=== PATIENT | female | born 1955 | race Caucasian/White ===

== ENCOUNTER 2020-01-16 21:40 | Inpatient (IN) | payer MEDICARE ==
[~2020-01-16] VITALS: Ht 152.4 cm; Wt 68.0 kg
[2020-01-16] MEDS ORDERED: [UNRECOGNIZED DRUG - REMARK] (22:01)
[2020-01-16] MEDS ORDERED: LORA1TAB PO (22:01)
[2020-01-16] MEDS ORDERED: SITA100T PO (22:01)
[2020-01-16] MEDS ORDERED: [UNRECOGNIZED DRUG - REMARK] (22:01)
[2020-01-16] MEDS ORDERED: FURO-152 PO (22:01)
[2020-01-16] MEDS ORDERED: VENL150C2 PO (22:01)
[2020-01-16] MEDS ORDERED: TOPI200T PO (22:01)
[2020-01-16] MEDS ORDERED: HYDR-4354 PO (22:01)
[2020-01-16] MEDS ORDERED: FESO8TAB PO (22:01)
[2020-01-16] MEDS ORDERED: ZIPR80CA2 PO (22:01)
[2020-01-16] MEDS ORDERED: GABA300C PO (22:01)
[2020-01-16] MEDS ORDERED: ZOLP10TA2 PO (22:01)
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
[2020-01-16] MEDS ORDERED: LISI-603 PO (22:12)
--- NOTE | 2020-01-16 22:29 | NUR ---
FARZANA DALEN AT THE BEDSIDE SINCE PT'S ARRIVAL. NAVIGATING OFFICER AWARE AND APPROVED
[2020-01-16 22:34] LABS: BASOPHILS # (AUTO) 0.1 K/uL (0.0-8.0); BASOPHILS % (AUTO) 1.1 % (0.0-2.0); EOSINOPHILS # (AUTO) 0.2 K/uL (0.0-0.7); EOSINOPHILS % (AUTO) 2.6 % (0.0-7.0); HEMATOCRIT 36.1 % (31.2-41.9); HEMOGLOBIN 12.1 g/dL (10.9-14.3); LYMPHOCYTES # (AUTO) 2.6 K/uL (20.0-40.0); LYMPHOCYTES % (AUTO) 28.6 % (20.5-51.5); MEAN CORPUSCULAR HEMOGLOBIN 33.7 uug (24.7-32.8); MEAN CORPUSCULAR HGB CONC 34 g/dL (32.3-35.6); MEAN CORPUSCULAR VOLUME 100.4 fL (75.5-95.3); MONOCYTES # (AUTO) 0.7 K/uL (2.0-10.0); MONOCYTES % (AUTO) 8.1 % (0.0-11.0); NEUTROPHILS # (AUTO) 5.4 K/uL (1.8-8.9); NEUTROPHILS % (AUTO) 59.6 % (38.5-71.5); PLATELET COUNT (AUTO) 250 K/uL (179-408); WHITE BLOOD COUNT (AUTO) 9.1 K/uL (3.8-11.8)
--- NOTE | 2020-01-16 22:38 | NUR ---
Dr. Archibald at bedside for MSE.
[2020-01-16 22:49] LABS: CARBON DIOXIDE 27 mmol/L (21-32); CHLORIDE 106 mmol/L (98-107); CREATININE 1.2 mg/dL (0.6-1.3); GLUCOSE 155 mg/dL (74-106); UREA NITROGEN, BLOOD 37 mg/dL (7-18)
[2020-01-16 22:50] LABS: ETHANOL < 3 MG/DL (0-0)
[2020-01-16 22:55] LABS: ACETAMINOPHEN 5.6 ug/mL (10-30); ALANINE AMINOTRANSFERASE 17 U/L (14-59); ALKALINE PHOSPHATASE 85 U/L (50-136); ASPARTATE AMINOTRANSFERASE 12 U/L (15-37); BILIRUBIN,DIRECT 0.1 mg/dL (0.0-0.2); BILIRUBIN,TOTAL 0.2 mg/dL (0.2-1.0); CREATINE KINASE, TOTAL 46 U/L (26-192); TOTAL PROTEIN, SERUM 6.6 g/dL (6.4-8.2)
[2020-01-16 23:02] LABS: THYROID STIMULATING HORMONE 4.475 mIU/mL (0.358-3.740)
[2020-01-16 23:10] LABS: *BILIRUBIN,URIN NEGATIVE (NEGATIVE); *COLOR,URINE YELLOW (YELLOW); *KETONES,URINE NEGATIVE (NEGATIVE); *UROBILINOGEN,URINE 0.2 E.U./dl (NORMAL); LEUKOCYTE ESTERASE ,URINE TRACE (NEGATIVE); NITRITE, URINE NEGATIVE (NEGATIVE); PH,URINE 5.5 (5.0-8.0); UGLUCOSE NEGATIVE (NEGATIVE)
[2020-01-16 23:21] LABS: *AMPHETAMINE, URINE NEGATIVE (NEGATIVE); *BARBITURATE, URINE NEGATIVE (NEGATIVE); *CANNABINOID, URINE NEGATIVE (NEGATIVE); *COCCAINE, URINE NEGATIVE (NEGATIVE); *OPIATE, URINE POSITIVE (NEGATIVE); *PHENCYCLIDINE SCREEN,URINE NEGATIVE (NEGATIVE)
[2020-01-16 23:24] LABS: *BLOOD, URINE TRACE (NEGATIVE); *CLARITY,URINE HAZY (CLEAR)
[2020-01-16 23:29] LABS: BACTERIA,URINE FEW /HPF (NONE SEEN); RBC,URINE 0-3 /HPF (0-3); SQUAMOUS EPITHELIAL CELL,UR FEW /HPF (NONE SEEN)
[2020-01-16 23:30] LABS: MUCUS,URINE FEW /LPF (0-FEW)
--- NOTE | 2020-01-17 02:41 | NUR ---
Patient asleep in bed. No behavioral issues noted at this time. 1:1 sitter on site.
[2020-01-17] MEDS ORDERED: LORAZEPAM 2 MG/1 ML VIAL IM ONE (04:00)
--- NOTE | 2020-01-17 04:00 | NUR ---
Patient wke up, was teary and agitated, requesting ATivan. Dr. Archibald made aware.
[2020-01-17] MEDS ORDERED: LORAZEPAM 2 MG/1 ML VIAL ONE (04:07)
[2020-01-17] MEDS ORDERED: KETOROLAC TROMETHAMINE 60 MG INJ IM ONE ×2 (04:23→04:30)
--- NOTE | 2020-01-17 04:58 | NUR ---
Patient complained of back pain. Dr. Archibald made aware and ordered Toradol IM.
[2020-01-17 07:30] VITALS: BP 144/75
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
[2020-01-17] MEDS ORDERED: CLONAZEPAM 0.5 MG TABLET PO PRN (08:15)
[2020-01-17] MEDS ORDERED: ZOLPIDEM 5 MG TABLET PO PRN (08:15)
[2020-01-17] MEDS ORDERED: MAG HYDROX/AL HYDROX/SIMETH 30 ML LIQUID UDC PO PRN (08:15)
[2020-01-17] MEDS ORDERED: BLOOD SUGAR DIAGNOSTIC 1 EACH STRIP VI ONE (08:15)
[2020-01-17] MEDS ORDERED: MAGNESIUM HYDROXIDE 30 ML LIQUID UDC PO PRN (08:15)
[2020-01-17] MEDS: ACETAMINOPHEN 325 MG TABLET PO PRN (08:32)
--- NOTE | 2020-01-17 10:01 | NUR ---
Social Work Initial Discharge Note: Patient currently resides at [address] [place] [address] Vinnie RODR[place]UE[place], [place] [address]. This financial underwriter contacted patient's friend Ever ([phone]) to gather collateral but was unavailable. This financial underwriter left a voicemail. Per pt, she would want to return back home upon discharge. heater worker will work with the MD and the treatment team to plan accordingly.
--- NOTE | 2020-01-17 10:02 | NUR ---
Social Work Family Contact: This senior writer contacted patient's friend Ever ([phone]) to gather collateral but was unavailable. This senior writer left a voicemail.
--- NOTE | 2020-01-17 10:06 | NUR ---
Social Work Firearms: Cuff Folder completed and submitted a [employer] firearms report for 5150 grave disability certification. A copy of report has been placed in patient chart.
[2020-01-17] MEDS: LINAGLIPTIN 5 MG TABLET PO SCH (10:25)
--- NOTE | 2020-01-17 10:32 | NUR ---
Social Work Family Contact: This mortgage or loan underwriter contacted patient's mother Yanely ([phone]) to gather collateral. Per mother, she would want pt back home up dc and when she is stable. Per mother, she states that pt has been on the same medications for 15 years and has not had any changes.
[2020-01-17] MEDS: HYDROCODONE/APAP 5-325MG TABLET PO PRN ×2 (11:02→21:49)
--- NOTE | 2020-01-17 11:45 | NUR ---
Gps/Colors Custodian- Pacing back and forth the hallway , crying ,loud, extremely anxious, demanding behavior . Will not stay in her room claimed her roommate complained about her. .
--- NOTE | 2020-01-17 11:50 | NUR ---
Gps/Architecture Internship- Offered clonopin 0.5 mg pt. refused, claimed she's allergic to it, she takes ativan [address] pt[address] Mcdermott wa informed .
[2020-01-17] MEDS: LORAZEPAM 0.5 MG TABLET PO PRN (12:12)
[2020-01-17] MEDS: TOLTERODINE LA 2 MG CAP.SR.24H PO SCH (12:30)
[2020-01-17] MEDS: FUROSEMIDE 20 MG TABLET PO SCH (12:30)
[2020-01-17] MEDS: LISINOPRIL 20 MG TABLET PO SCH (12:33)
--- NOTE | 2020-01-17 12:42 | NUR ---
Gps/Gear Repair Supervisor- Patient demanding to have her medications for B/P right away , claimed she will call her Manager Pet that staff are not giving her medication. Pharmacy was working on it it . Patient refused to listen to explanation, answered back with loud tone of voice. Prinivil 20 mg. was given , but refused to take her lasix 20 mg claimed too late, will take tomorrow. Stayed up in the activity room during lunch, discouraged from yelling on the phone.
[2020-01-17] MEDS ORDERED: ZIPRASIDONE 80 MG CAPSULE PO SCH (13:30)
--- NOTE | 2020-01-17 14:16 | NUR ---
Gps/Shingles Roofer- Unable to administer Psych . meds. waiting for meds. consent from Dr Mcdermott
[2020-01-17] MEDS: GABAPENTIN 300 MG CAPSULE PO SCH ×3 (15:07→20:33)
[2020-01-17] MEDS: VENLAFAXINE XR 150 MG CAP.SR.24H PO SCH ×2 (15:08→17:04)
[2020-01-17] MEDS: ZIPRASIDONE 20 MG CAPSULE PO SCH ×2 (15:09→20:36)
--- NOTE | 2020-01-17 15:39 | NUR ---
Brief Substance Abuse Intervention: Patient was provided with a brief substance abuse intervention and referred to the following substance abuse programs: [facility] Substance Abuse Self-helpline ([phone]); [facility] [address] [place] [address] ([phone]); [facility] [address] [facility] [address] ([phone]); [facility] ([phone]); [facility] ([phone]); [facility] ([phone]); [facility] ([phone]).
[2020-01-17 16:00] VITALS: BP 120/79
[2020-01-17] MEDS: CEphaleXIN 500 MG CAPSULE PO SCH (16:55)
--- NOTE | 2020-01-17 17:00 | NUR ---
Gps/Sales Representative Door To Door- Called [facility] ) checked right dose for her Crestor , and levothyroxin, Codie MURPHY was informed.
--- NOTE | 2020-01-17 18:02 | NUR ---
Gps/Local Company Intermodal Truck Driver- Transfered to room 140 -B .
[2020-01-17] MEDS: SIMVASTATIN 10 MG TABLET PO SCH (20:33)
[2020-01-17] MEDS: TOPIRAMATE 100 MG TABLET PO SCH (20:34)
[2020-01-17 20:36] VITALS: BP 130/61
[2020-01-17] MEDS: TEMAZEPAM 7.5 MG CAPSULE PO PRN (22:55)
--- NOTE | 2020-01-17 23:26 | NUR ---
GPS/ Received pt up walking/pacing in nursing station. Pt able to verbalized needs. pt went back to her room and was lying down. Face to face interview done with noted pt A/O X3, but with some cognitive deficit. Pt was able to carry out conversation with lapse of concentration and some confusion. Denied SI or intent to harm self or others. Pt cooperative with medications but suspicious and required reassurance. Monitor pt and encouraged to vent out feelings. Pt requested for pain med due to chronic back pain. PRN Delton was given as order by 2139. By 2299 pt c/o still having pain and need something to help her sleep. Ambien was administered at order. monitor pt at this time for effectiveness. Q/15mins head count ongoing.
[2020-01-18] MEDS: LEVOTHYROXINE SODIUM 25 MCG TABLET PO SCH (07:01)
[2020-01-18 07:17] LABS: BILIRUBIN,TOTAL 0.3 mg/dL (0.2-1.0); CREATININE 1.1 mg/dL (0.6-1.3); POTASSIUM 4.5 mmol/L (3.5-5.1); TOTAL PROTEIN, SERUM 6.2 g/dL (6.4-8.2)
[2020-01-18 07:30] VITALS: BP 129/78
--- NOTE | 2020-01-18 08:00 | NUR ---
Walking in the hallway, pleasant. Calm and compliant with taking medication
[2020-01-18] MEDS ORDERED: Medication Not On Formulary EA (Sitagliptin Phosphate (Januvia) 100 MG) PO SCH (09:00)
[2020-01-18] MEDS ORDERED: Medication Not On Formulary EA (Fesoterodine Fumarate (Toviaz) 8 MG) PO SCH (09:00)
[2020-01-18] MEDS: VENLAFAXINE XR 150 MG CAP.SR.24H PO SCH ×2 (09:20→17:09)
[2020-01-18] MEDS: TOLTERODINE LA 2 MG CAP.SR.24H PO SCH (09:20)
[2020-01-18] MEDS: CEphaleXIN 500 MG CAPSULE PO SCH ×2 (09:21→17:09)
[2020-01-18] MEDS: FUROSEMIDE 20 MG TABLET PO SCH (09:21)
[2020-01-18] MEDS: ZIPRASIDONE 20 MG CAPSULE PO SCH ×2 (09:21→20:17)
[2020-01-18] MEDS: LISINOPRIL 20 MG TABLET PO SCH (09:22)
[2020-01-18] MEDS: GABAPENTIN 300 MG CAPSULE PO SCH ×4 (09:22→20:17)
[2020-01-18] MEDS: LINAGLIPTIN 5 MG TABLET PO SCH (09:22)
[2020-01-18] MEDS ORDERED: DEXTROSE 50% 50 ML DISP.SYRIN IV PRN (09:30)
[2020-01-18] MEDS: HYDROCODONE/APAP 5-325MG TABLET PO PRN ×2 (09:44→21:01)
--- NOTE | 2020-01-18 09:45 | NUR ---
Complaining of generalized pain. [place] po given with relief.
[2020-01-18] MEDS: BLOOD SUGAR DIAGNOSTIC 1 EACH STRIP VI SCH ×3 (11:49→20:17)
[2020-01-18] MEDS: INSULIN REGULAR, HUMAN 300 UNIT/3 ML VIAL SQ PRN ×2 (12:15→17:14)
[2020-01-18] MEDS: ACETAMINOPHEN 325 MG TABLET PO PRN (13:39)
--- NOTE | 2020-01-18 14:16 | NUR ---
Sitting at the dining area, interacting with others. Complaining of teeth pain, Tylenol po given
[2020-01-18] MEDS: LORAZEPAM 0.5 MG TABLET PO PRN (15:51)
--- NOTE | 2020-01-18 15:55 | NUR ---
Crying and screaming when one of the patient went to her room/bed; Redirected; Ativan given; Calm after
[2020-01-18 16:00] VITALS: BP 123/76
[2020-01-18] MEDS: METFORMIN HCL 500 MG TABLET PO SCH (17:10)
[2020-01-18] MEDS: TOPIRAMATE 100 MG TABLET PO SCH (20:17)
[2020-01-18] MEDS: SIMVASTATIN 10 MG TABLET PO SCH (20:17)
[2020-01-18 20:27] VITALS: BP 147/64
[2020-01-18] MEDS: TEMAZEPAM 7.5 MG CAPSULE PO PRN (22:12)
[2020-01-19] MEDS: LORAZEPAM 0.5 MG TABLET PO PRN ×3 (03:49→22:48)
[2020-01-19] MEDS: LEVOTHYROXINE SODIUM 25 MCG TABLET PO SCH (06:11)
[2020-01-19] MEDS: BLOOD SUGAR DIAGNOSTIC 1 EACH STRIP VI SCH ×4 (06:12→20:24)
[2020-01-19] MEDS: METFORMIN HCL 500 MG TABLET PO SCH ×2 (07:43→16:50)
[2020-01-19] MEDS: LINAGLIPTIN 5 MG TABLET PO SCH (07:43)
[2020-01-19] MEDS: CEphaleXIN 500 MG CAPSULE PO SCH ×2 (07:44→16:50)
[2020-01-19] MEDS: HYDROCODONE/APAP 5-325MG TABLET PO PRN ×2 (07:44→15:29)
[2020-01-19] MEDS: GABAPENTIN 300 MG CAPSULE PO SCH ×4 (07:45→20:24)
[2020-01-19] MEDS: FUROSEMIDE 20 MG TABLET PO SCH (07:45)
[2020-01-19] MEDS: LISINOPRIL 20 MG TABLET PO SCH (07:47)
[2020-01-19] MEDS: ZIPRASIDONE 20 MG CAPSULE PO SCH ×2 (07:57→20:24)
[2020-01-19] MEDS: VENLAFAXINE XR 150 MG CAP.SR.24H PO SCH ×2 (07:57→16:50)
[2020-01-19] MEDS: TOLTERODINE LA 2 MG CAP.SR.24H PO SCH (07:57)
[2020-01-19 08:03] VITALS: BP 133/77
[2020-01-19] MEDS: INSULIN REGULAR, HUMAN 300 UNIT/3 ML VIAL SQ PRN ×2 (08:10→12:08)
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
--- NOTE | 2020-01-19 10:00 | NUR ---
Ignoring pt attention seekin behavior of pt effective. Pt in her room and sleeping.
[2020-01-19 15:37] VITALS: BP 114/64
--- NOTE | 2020-01-19 18:32 | NUR ---
Pt cooperative on taking her pills. PT had good appetite with dinner.
[2020-01-19 20:03] VITALS: BP 128/88
[2020-01-19] MEDS: SIMVASTATIN 10 MG TABLET PO SCH (20:24)
[2020-01-19] MEDS: TOPIRAMATE 100 MG TABLET PO SCH ×2 (20:24→21:00)
[2020-01-19] MEDS: ZOLPIDEM 5 MG TABLET PO PRN (21:43)
[2020-01-20] MEDS: LEVOTHYROXINE SODIUM 25 MCG TABLET PO SCH (06:25)
[2020-01-20] MEDS: BLOOD SUGAR DIAGNOSTIC 1 EACH STRIP VI SCH ×4 (06:47→20:35)
--- NOTE | 2020-01-20 07:25 | NUR ---
patient slept for approx 7 hrs through the night. BG 145. will continue to monitor.
[2020-01-20 07:30] VITALS: BP 111/74
[2020-01-20] MEDS: VENLAFAXINE XR 150 MG CAP.SR.24H PO SCH ×2 (08:13→16:00)
[2020-01-20] MEDS: METFORMIN HCL 500 MG TABLET PO SCH ×2 (08:13→16:58)
[2020-01-20] MEDS: GABAPENTIN 300 MG CAPSULE PO SCH ×4 (08:13→20:35)
[2020-01-20] MEDS: FUROSEMIDE 20 MG TABLET PO SCH (08:13)
[2020-01-20] MEDS: LINAGLIPTIN 5 MG TABLET PO SCH (08:13)
[2020-01-20] MEDS: LISINOPRIL 20 MG TABLET PO SCH (08:13)
[2020-01-20] MEDS: TOLTERODINE LA 2 MG CAP.SR.24H PO SCH (08:14)
[2020-01-20] MEDS: CEphaleXIN 500 MG CAPSULE PO SCH ×2 (08:15→16:00)
[2020-01-20] MEDS: INSULIN REGULAR, HUMAN 300 UNIT/3 ML VIAL SQ PRN ×2 (08:18→17:00)
[2020-01-20] MEDS: HYDROCODONE/APAP 5-325MG TABLET PO PRN (08:29)
[2020-01-20] MEDS: ZIPRASIDONE 20 MG CAPSULE PO SCH ×2 (09:25→20:35)
--- NOTE | 2020-01-20 09:54 | NUR ---
Social Work Family Contact: SW contacted patient's mother Yanely ([phone]) after she left a voicemail. SW and the pts mother discussed placement needs for the pt. Pts mother stated that she is "too old to be taking care of her." She stated that the pt cannot take care of herself and has not bathed in the past 5 months. SW stated that the pt will need a higher level of care and that the SW will send out referrals for placement and keep her updated on the plan.
--- NOTE | 2020-01-20 13:30 | NUR ---
pt states that she feels anxious and upset with one patients. Encourage pt to do some deep breathing to calm her self down.
[2020-01-20] MEDS: LORAZEPAM 0.5 MG TABLET PO PRN ×2 (13:51→22:52)
--- NOTE | 2020-01-20 13:51 | NUR ---
Pt still anxious. deep breathing non effective. Ativan given for anxiety.
--- NOTE | 2020-01-20 14:48 | NUR ---
Ativan effective per patient. Pt states that she feels better.
[2020-01-20 16:00] VITALS: BP 99/64
[2020-01-20] MEDS: ACETAMINOPHEN 325 MG TABLET PO PRN (16:00)
[2020-01-20 20:00] VITALS: BP 102/61
[2020-01-20] MEDS: SIMVASTATIN 10 MG TABLET PO SCH (20:35)
[2020-01-20] MEDS: TOPIRAMATE 100 MG TABLET PO SCH (20:35)
[2020-01-20] MEDS: ZOLPIDEM 5 MG TABLET PO PRN (21:36)
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
[2020-01-21] MEDS: BLOOD SUGAR DIAGNOSTIC 1 EACH STRIP VI SCH ×4 (06:44→20:57)
[2020-01-21] MEDS: LEVOTHYROXINE SODIUM 25 MCG TABLET PO SCH (07:13)
[2020-01-21] MEDS: FUROSEMIDE 20 MG TABLET PO SCH (08:23)
[2020-01-21] MEDS: LISINOPRIL 20 MG TABLET PO SCH (08:23)
[2020-01-21] MEDS: LINAGLIPTIN 5 MG TABLET PO SCH (08:23)
[2020-01-21] MEDS: CEphaleXIN 500 MG CAPSULE PO SCH ×2 (08:23→16:16)
[2020-01-21] MEDS: ZIPRASIDONE 20 MG CAPSULE PO SCH ×2 (08:23→20:58)
[2020-01-21] MEDS: GABAPENTIN 300 MG CAPSULE PO SCH ×4 (08:24→20:57)
[2020-01-21] MEDS: METFORMIN HCL 500 MG TABLET PO SCH ×2 (08:24→16:15)
[2020-01-21] MEDS: VENLAFAXINE XR 150 MG CAP.SR.24H PO SCH ×2 (08:24→16:15)
[2020-01-21] MEDS: INSULIN REGULAR, HUMAN 300 UNIT/3 ML VIAL SQ PRN ×2 (08:25→16:29)
[2020-01-21 08:39] VITALS: BP 129/89
[2020-01-21] MEDS: TOLTERODINE LA 2 MG CAP.SR.24H PO SCH (09:00)
[2020-01-21 15:40] VITALS: BP 133/77
--- NOTE | 2020-01-21 16:02 | NUR ---
Social Work Family Contact: Patient's mother Yanely ([phone]) contacted the SW and stated that the pt told her that she was going to be discharged the next day back home. SW stated that she is aware that the pts mother does not want her to return to the home and that is why she is sending referrals for placement. SW also stated that the pt is not being discharged the next day and that she will inform her when that time comes.
--- NOTE | 2020-01-21 16:03 | NUR ---
SNF Referral: AVELINO faxed a referral to [facility] with attention to Yudith to the fax number: [phone].
--- NOTE | 2020-01-21 17:40 | NUR ---
PATIENT IN THE DAY ROOM, SHE IS NOTED WATCHING TV. PT PRESENTS WITH LABILE BX, EASILY IRRITABLE. SHE IS A/O X 4 ABLE TO AMBULATE WITH STEADY GAIT AND ABLE TO MAKE HER NEEDS KNOWN. NO AGGRESSIVE COMBATIVE BX IN NOTED OR REPORTED AT THIS TIME. V/S STABLE, PT IS REASSURED FOR HER SAFETY. SAFETY AND FALL PRECAUTION IN PLACE. WILL CONTINUE TO MONITOR.
[2020-01-21] MEDS: LORAZEPAM 0.5 MG TABLET PO PRN (19:06)
[2020-01-21 20:06] VITALS: BP 122/69
[2020-01-21] MEDS: SIMVASTATIN 10 MG TABLET PO SCH (20:57)
[2020-01-21] MEDS: TOPIRAMATE 100 MG TABLET PO SCH (21:00)
[2020-01-21] MEDS: ZOLPIDEM 5 MG TABLET PO PRN (21:51)
[2020-01-22] MEDS: HYDROCODONE/APAP 5-325MG TABLET PO PRN ×2 (03:04→12:48)
[2020-01-22] MEDS: LORAZEPAM 0.5 MG TABLET PO PRN ×3 (03:43→23:19)
--- NOTE | 2020-01-22 05:14 | NUR ---
GPS/ Pt received standing in front of nursing station waiting for antianxiety medication upon arrival to unit. Medication was given as order. Noted some anxiousness and needy during shit. Routine medication given and tolerated well. PRN Ativan, Ambien and [place] given during night. Monitor and encouraged to vent out.=
[2020-01-22] MEDS: BLOOD SUGAR DIAGNOSTIC 1 EACH STRIP VI SCH ×4 (06:35→20:40)
--- NOTE | 2020-01-22 06:48 | NUR ---
Pt blood sugar was 143 in am. and slept about 6.45mins. awake to name and noted resting comfortable.
[2020-01-22] MEDS: LEVOTHYROXINE SODIUM 25 MCG TABLET PO SCH (07:04)
[2020-01-22 07:30] VITALS: BP 123/60
[2020-01-22] MEDS: VENLAFAXINE XR 150 MG CAP.SR.24H PO SCH ×2 (08:04→17:22)
[2020-01-22] MEDS: ZIPRASIDONE 20 MG CAPSULE PO SCH ×2 (08:04→20:03)
[2020-01-22] MEDS: TOLTERODINE LA 2 MG CAP.SR.24H PO SCH (08:04)
[2020-01-22] MEDS: INSULIN REGULAR, HUMAN 300 UNIT/3 ML VIAL SQ PRN ×2 (08:06→17:27)
[2020-01-22] MEDS: CEphaleXIN 500 MG CAPSULE PO SCH (08:08)
[2020-01-22] MEDS: LINAGLIPTIN 5 MG TABLET PO SCH (08:08)
[2020-01-22] MEDS: GABAPENTIN 300 MG CAPSULE PO SCH ×4 (08:08→20:02)
[2020-01-22] MEDS: LISINOPRIL 20 MG TABLET PO SCH (08:08)
[2020-01-22] MEDS: FUROSEMIDE 20 MG TABLET PO SCH (08:08)
[2020-01-22] MEDS: METFORMIN HCL 500 MG TABLET PO SCH ×2 (08:08→17:22)
--- NOTE | 2020-01-22 10:45 | NUR ---
SNF Contact: SW contacted Yudith ([phone]), admissions for [facility], and was informed that the pt was accepted to their facility.
--- NOTE | 2020-01-22 11:25 | NUR ---
Probable Cause Hearing: Pts 5250 hold was upheld for grave disability and danger to others.
--- NOTE | 2020-01-22 12:31 | NUR ---
Social Work Family Contact: SW contacted patient's mother Yanely ([phone]) and informed her that the pt is going to be discharged to [facility] on Monday. Pts mother accepted the placement. SW stated that she will continue to work with the pt to assist with her understanding of the discharge.
--- NOTE | 2020-01-22 13:20 | NUR ---
Individual Intervention: SW met with the pt in her room and informed her that she cannot return to her home due to the pts mother stating that she is uncomfortable and concerned about her own safety. Pt became verbally aggressive and began shouting. Pt stated that she wanted to speak to her mother once the phones were available. Pt was observed to be screaming at her mother and was tearful when told that she cannot go home.
--- NOTE | 2020-01-22 13:46 | NUR ---
patient crying and yelling in her room on the phone with her mom, patient was upset after learning the DC planning that shes not going back home, patient been loud, patient attention seeking, crying , patient verbalizes that she will stay in her car instead , aware Addendum: 01/22/20 at 1352 by RICHARD QUIROGA RN prn meds given for anxiety
[2020-01-22 16:00] VITALS: BP 100/52
[2020-01-22] MEDS: HYDROCORTISONE 1% OINT 28.35 GM TUBE TOP SCH (17:22)
[2020-01-22 20:01] VITALS: BP 136/70
[2020-01-22] MEDS: SIMVASTATIN 10 MG TABLET PO SCH (20:02)
[2020-01-22] MEDS: ACETAMINOPHEN 325 MG TABLET PO PRN (20:03)
[2020-01-22] MEDS: TOPIRAMATE 100 MG TABLET PO SCH (20:03)
[2020-01-22] MEDS: ZOLPIDEM 5 MG TABLET PO PRN (21:34)
--- NOTE | 2020-01-22 23:35 | NUR ---
Received patient standing in the hallway and asking for Tylenol due to headache. Compliant with medications. No SI. Accucheck @2100 BS:160, but she refused insulin. Got agitated and started cring because her mother did not accept her to come back to home. Ativan administered. Safety measures maintained. Continue to monitor.
[2020-01-23] MEDS: LEVOTHYROXINE SODIUM 25 MCG TABLET PO SCH (06:03)
[2020-01-23] MEDS: BLOOD SUGAR DIAGNOSTIC 1 EACH STRIP VI SCH ×4 (06:38→20:15)
[2020-01-23 07:30] VITALS: BP 95/49
[2020-01-23] MEDS: LINAGLIPTIN 5 MG TABLET PO SCH (09:00)
[2020-01-23] MEDS: LISINOPRIL 20 MG TABLET PO SCH (09:00)
[2020-01-23] MEDS: FUROSEMIDE 20 MG TABLET PO SCH (09:00)
[2020-01-23] MEDS: GABAPENTIN 300 MG CAPSULE PO SCH ×4 (09:19→20:14)
[2020-01-23] MEDS: METFORMIN HCL 500 MG TABLET PO SCH ×2 (09:19→18:01)
[2020-01-23] MEDS: VENLAFAXINE XR 150 MG CAP.SR.24H PO SCH ×2 (09:20→18:01)
[2020-01-23] MEDS: TOLTERODINE LA 2 MG CAP.SR.24H PO SCH (09:20)
[2020-01-23] MEDS: ZIPRASIDONE 20 MG CAPSULE PO SCH ×2 (09:21→20:13)
[2020-01-23] MEDS: LORAZEPAM 0.5 MG TABLET PO PRN ×2 (09:48→18:21)
[2020-01-23] MEDS: HYDROCORTISONE 1% OINT 28.35 GM TUBE TOP SCH ×2 (09:49→17:07)
[2020-01-23] MEDS: INSULIN REGULAR, HUMAN 300 UNIT/3 ML VIAL SQ PRN ×2 (12:28→20:15)
--- NOTE | 2020-01-23 12:45 | NUR ---
Individual Intervention with Pt: SW met with the pt and informed her that her discharge for the following day has been cancelled because the MD needs to make some medication adjustments due to her labile mood. Pt stated that she spoke to her mother and that her mother stated that she can come home once she is more stable after a few days. SW stated that the pt will need to continue to take her medications and show improvement because the pts mother is concerned for her own safety. Pt stated that she understood and that she is going to work on controlling her behaviors.
--- NOTE | 2020-01-23 12:49 | NUR ---
Social Work Family Contact: SW contacted patient's mother Yanely ([phone]) and informed her that the pts discharge for the following day to [facility] is going to be postponed as the MD is making medication changes. SW asked the pts mother if she would be willing to take the pt home after a few days if she shows improvement like the pt stated and the pts mother stated that is not true and will not take her back home. Pts mother stated that she wants the pt to be discharged to the SNF to further stabilize.
[2020-01-23] MEDS: LITHIUM CARBONATE 150 MG CAPSULE PO SCH ×2 (14:42→18:01)
[2020-01-23 16:00] VITALS: BP 95/49
[2020-01-23] MEDS: HYDROCODONE/APAP 5-325MG TABLET PO PRN (18:21)
[2020-01-23] MEDS: TOPIRAMATE 100 MG TABLET PO SCH (20:14)
[2020-01-23] MEDS: SIMVASTATIN 10 MG TABLET PO SCH (20:14)
[2020-01-23 20:45] VITALS: BP 122/78
[2020-01-23] MEDS: ZOLPIDEM 5 MG TABLET PO PRN (21:30)
--- NOTE | 2020-01-24 05:43 | NUR ---
GPS/NSG Patient first observed standing in the hallway interacting with peers. Compliant with HS medications. No SI. Accucheck @2100 BS:138, insulin administered as ordered. Patient began to get agitated, labile mood, requested a prn for insomnia. Safety measures maintained. Continue to monitor.
[2020-01-24] MEDS: LEVOTHYROXINE SODIUM 25 MCG TABLET PO SCH (06:51)
[2020-01-24] MEDS: BLOOD SUGAR DIAGNOSTIC 1 EACH STRIP VI SCH ×4 (07:02→19:54)
[2020-01-24 07:30] VITALS: BP 92/57
[2020-01-24] MEDS: LINAGLIPTIN 5 MG TABLET PO SCH (08:23)
[2020-01-24] MEDS: METFORMIN HCL 500 MG TABLET PO SCH ×2 (08:23→17:07)
[2020-01-24] MEDS: GABAPENTIN 300 MG CAPSULE PO SCH ×4 (08:23→20:07)
[2020-01-24] MEDS: FUROSEMIDE 20 MG TABLET PO SCH (08:23)
[2020-01-24] MEDS: ZIPRASIDONE 20 MG CAPSULE PO SCH ×2 (08:24→20:07)
[2020-01-24] MEDS: LITHIUM CARBONATE 150 MG CAPSULE PO SCH ×2 (08:24→17:07)
[2020-01-24] MEDS: TOLTERODINE LA 2 MG CAP.SR.24H PO SCH (08:24)
[2020-01-24] MEDS: VENLAFAXINE XR 150 MG CAP.SR.24H PO SCH ×2 (08:24→17:06)
[2020-01-24] MEDS: HYDROCORTISONE 1% OINT 28.35 GM TUBE TOP SCH ×2 (08:25→17:03)
[2020-01-24] MEDS: INSULIN REGULAR, HUMAN 300 UNIT/3 ML VIAL SQ PRN ×2 (08:26→12:24)
[2020-01-24] MEDS: LISINOPRIL 20 MG TABLET PO SCH (08:41)
[2020-01-24 16:00] VITALS: BP 116/69
[2020-01-24] MEDS: ACETAMINOPHEN 325 MG TABLET PO PRN (17:06)
[2020-01-24] MEDS: SIMVASTATIN 10 MG TABLET PO SCH (20:07)
[2020-01-24] MEDS: TOPIRAMATE 100 MG TABLET PO SCH (20:08)
[2020-01-24] MEDS: LORAZEPAM 0.5 MG TABLET PO PRN (20:47)
[2020-01-24 20:51] VITALS: BP 114/60
[2020-01-24] MEDS: ZOLPIDEM 5 MG TABLET PO PRN (23:04)
[2020-01-25] MEDS: LEVOTHYROXINE SODIUM 25 MCG TABLET PO SCH (06:29)
[2020-01-25] MEDS: BLOOD SUGAR DIAGNOSTIC 1 EACH STRIP VI SCH ×4 (06:29→20:55)
[2020-01-25] MEDS: VENLAFAXINE XR 150 MG CAP.SR.24H PO SCH (08:42)
[2020-01-25] MEDS: LINAGLIPTIN 5 MG TABLET PO SCH (08:42)
[2020-01-25] MEDS: ZIPRASIDONE 20 MG CAPSULE PO SCH ×2 (08:42→20:59)
[2020-01-25] MEDS: FUROSEMIDE 20 MG TABLET PO SCH (08:43)
[2020-01-25] MEDS: METFORMIN HCL 500 MG TABLET PO SCH ×2 (08:43→17:03)
[2020-01-25] MEDS: LITHIUM CARBONATE 150 MG CAPSULE PO SCH ×2 (08:43→16:22)
[2020-01-25] MEDS: TOLTERODINE LA 2 MG CAP.SR.24H PO SCH (08:43)
[2020-01-25] MEDS: GABAPENTIN 300 MG CAPSULE PO SCH ×4 (08:44→20:57)
[2020-01-25] MEDS: LISINOPRIL 20 MG TABLET PO SCH (08:44)
[2020-01-25] MEDS: HYDROCORTISONE 1% OINT 28.35 GM TUBE TOP SCH ×2 (08:45→16:23)
[2020-01-25] MEDS: HYDROCODONE/APAP 5-325MG TABLET PO PRN (10:09)
--- NOTE | 2020-01-25 10:38 | NUR ---
received a call from Dr. Oliva Kim [phone] primary outpatient psychiatrist of the patient, she wanted to talk with Dr. Mcdremott, left message with and will follow up
[2020-01-25] MEDS: INSULIN REGULAR, HUMAN 300 UNIT/3 ML VIAL SQ PRN ×2 (11:24→20:56)
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
[2020-01-25] MEDS: LORAZEPAM 0.5 MG TABLET PO PRN (13:30)
[2020-01-25 14:10] VITALS: BP 96/58
[2020-01-25 16:00] VITALS: BP 119/64
--- NOTE | 2020-01-25 18:35 | NUR ---
Patient calm in bed noted. Patient compliant with medication with good effect. Patient conversation family thru phone noted. Denies pain/discomfort. will continue monitor
[2020-01-25 20:00] VITALS: BP 151/76
[2020-01-25] MEDS: SIMVASTATIN 10 MG TABLET PO SCH (20:57)
[2020-01-25] MEDS: TOPIRAMATE 100 MG TABLET PO SCH (21:00)
[2020-01-25] MEDS: ZOLPIDEM 5 MG TABLET PO PRN (21:00)
[2020-01-26] MEDS: LEVOTHYROXINE SODIUM 25 MCG TABLET PO SCH (06:22)
[2020-01-26] MEDS: BLOOD SUGAR DIAGNOSTIC 1 EACH STRIP VI SCH ×4 (06:23→20:36)
[2020-01-26 07:30] VITALS: BP 104/66
[2020-01-26] MEDS: INSULIN REGULAR, HUMAN 300 UNIT/3 ML VIAL SQ PRN ×4 (08:01→20:44)
[2020-01-26] MEDS: LINAGLIPTIN 5 MG TABLET PO SCH (08:14)
[2020-01-26] MEDS: GABAPENTIN 300 MG CAPSULE PO SCH ×4 (08:14→20:35)
[2020-01-26] MEDS: METFORMIN HCL 500 MG TABLET PO SCH ×2 (08:14→17:00)
[2020-01-26] MEDS: TOLTERODINE LA 2 MG CAP.SR.24H PO SCH (08:15)
[2020-01-26] MEDS: VENLAFAXINE XR 150 MG CAP.SR.24H PO SCH (08:15)
[2020-01-26] MEDS: ZIPRASIDONE 20 MG CAPSULE PO SCH ×2 (08:16→20:35)
[2020-01-26] MEDS: LITHIUM CARBONATE 150 MG CAPSULE PO SCH (08:17)
[2020-01-26] MEDS: HYDROCORTISONE 1% OINT 28.35 GM TUBE TOP SCH ×2 (08:19→16:59)
[2020-01-26] MEDS: FUROSEMIDE 20 MG TABLET PO SCH (08:19)
[2020-01-26] MEDS: LISINOPRIL 20 MG TABLET PO SCH (09:00)
[2020-01-26] MEDS: HYDROCODONE/APAP 5-325MG TABLET PO PRN (09:52)
[2020-01-26 12:51] LABS: BASOPHILS # (AUTO) 0.1 K/uL (0.0-8.0); BASOPHILS % (AUTO) 0.7 % (0.0-2.0); EOSINOPHILS # (AUTO) 0.2 K/uL (0.0-0.7); EOSINOPHILS % (AUTO) 1.2 % (0.0-7.0); HEMATOCRIT 39.8 % (31.2-41.9); HEMOGLOBIN 13.2 g/dL (10.9-14.3); LYMPHOCYTES # (AUTO) 2.7 K/uL (20.0-40.0); LYMPHOCYTES % (AUTO) 18.5 % (20.5-51.5); MEAN CORPUSCULAR HEMOGLOBIN 33.5 uug (24.7-32.8); MEAN CORPUSCULAR HGB CONC 33 g/dL (32.3-35.6); MONOCYTES # (AUTO) 0.7 K/uL (2.0-10.0); MONOCYTES % (AUTO) 4.7 % (0.0-11.0); NEUTROPHILS % (AUTO) 74.9 % (38.5-71.5); PLATELET COUNT (AUTO) 262 K/uL (179-408); RED BLOOD CELL COUNT(AUTO) 3.94 MIL/uL (3.63-4.92); WHITE BLOOD COUNT (AUTO) 14.6 K/uL (3.8-11.8)
[2020-01-26 13:11] LABS: BILIRUBIN,TOTAL 0.4 mg/dL (0.2-1.0); CREATININE 1.4 mg/dL (0.6-1.3); POTASSIUM 4.1 mmol/L (3.5-5.1); TOTAL PROTEIN, SERUM 8.1 g/dL (6.4-8.2)
--- NOTE | 2020-01-26 15:27 | NUR ---
CALLED AND LEFT MESSAGE FOR NEPHRO EVAL FOR DR. MCCABE [phone]
[2020-01-26] MEDS: OXCARBAZEPINE 150 MG TABLET PO SCH (16:51)
--- NOTE | 2020-01-26 18:26 | NUR ---
Pt received resting in room, awake, and calm. Pt compliant with medication administration, able to make needs known, denies SI/HI and able to CFS at this time. Pt behavior can be liable at times, demonstrated with crying out in refusal of blood draw first attempt and again later at another Pt for coughing. Pt able to be redirected and calmed down. BS and insulin coverage compliant. Will continue to monitor and endorse.
[2020-01-26 20:00] VITALS: BP 130/83
[2020-01-26] MEDS: SIMVASTATIN 10 MG TABLET PO SCH (20:35)
[2020-01-26] MEDS: TOPIRAMATE 100 MG TABLET PO SCH (20:36)
[2020-01-26] MEDS: ZOLPIDEM 5 MG TABLET PO PRN (21:41)
[2020-01-26 22:27] LABS: *BILIRUBIN,URIN NEGATIVE (NEGATIVE); *BLOOD, URINE 1+ (NEGATIVE); *COLOR,URINE YELLOW (YELLOW); *KETONES,URINE TRACE (NEGATIVE); *UROBILINOGEN,URINE 0.2 E.U./dl (NORMAL); LEUKOCYTE ESTERASE ,URINE TRACE (NEGATIVE); NITRITE, URINE NEGATIVE (NEGATIVE); UGLUCOSE NEGATIVE (NEGATIVE)
[2020-01-26] MEDS: LORAZEPAM 0.5 MG TABLET PO PRN (22:33)
--- NOTE | 2020-01-26 22:34 | NUR ---
Pt very agitated, going back and forth to station asking for ativan, she said she couldn't sleep regardless of being given with ambien. Ativan given PRN as ordered. Will continue to monitor.
[2020-01-26 22:44] LABS: *CLARITY,URINE HAZY (CLEAR)
[2020-01-26 23:07] LABS: BACTERIA,URINE NONE SEEN /HPF (NONE SEEN); SQUAMOUS EPITHELIAL CELL,UR FEW /HPF (NONE SEEN)
[2020-01-26 23:08] LABS: MUCUS,URINE FEW /LPF (0-FEW)
[2020-01-27] MEDS: ACETAMINOPHEN 325 MG TABLET PO PRN ×2 (01:58→11:08)
[2020-01-27] MEDS: LEVOTHYROXINE SODIUM 25 MCG TABLET PO SCH (06:12)
--- NOTE | 2020-01-27 06:29 | NUR ---
Pt slept 5.15 hrs. Resting in bed at this time. Also medicated with tylenol for c/o LUGO. BS 114 in am.
[2020-01-27] MEDS: BLOOD SUGAR DIAGNOSTIC 1 EACH STRIP VI SCH ×4 (06:35→20:18)
[2020-01-27 07:30] VITALS: BP 116/66
[2020-01-27] MEDS: ZIPRASIDONE 20 MG CAPSULE PO SCH ×2 (09:12→20:08)
[2020-01-27] MEDS: LINAGLIPTIN 5 MG TABLET PO SCH (09:12)
[2020-01-27] MEDS: GABAPENTIN 300 MG CAPSULE PO SCH ×4 (09:12→20:11)
[2020-01-27] MEDS: VENLAFAXINE XR 150 MG CAP.SR.24H PO SCH (09:12)
[2020-01-27] MEDS: OXCARBAZEPINE 150 MG TABLET PO SCH ×3 (09:12→17:08)
[2020-01-27] MEDS: METFORMIN HCL 500 MG TABLET PO SCH ×2 (09:12→17:08)
[2020-01-27] MEDS: TOLTERODINE LA 2 MG CAP.SR.24H PO SCH (09:12)
[2020-01-27] MEDS: HYDROCORTISONE 1% OINT 28.35 GM TUBE TOP SCH ×2 (09:13→17:09)
[2020-01-27] MEDS: INSULIN REGULAR, HUMAN 300 UNIT/3 ML VIAL SQ PRN ×2 (12:14→17:48)
[2020-01-27 16:00] VITALS: BP 117/83
[2020-01-27 20:00] VITALS: BP 129/84
[2020-01-27] MEDS: TOPIRAMATE 100 MG TABLET PO SCH (20:11)
[2020-01-27] MEDS: SIMVASTATIN 10 MG TABLET PO SCH (20:11)
[2020-01-27] MEDS: ZOLPIDEM 5 MG TABLET PO PRN (21:05)
[2020-01-27] MEDS: LORAZEPAM 0.5 MG TABLET PO PRN (22:04)
[2020-01-28] MEDS: BLOOD SUGAR DIAGNOSTIC 1 EACH STRIP VI SCH ×4 (05:59→21:04)
[2020-01-28] MEDS: LEVOTHYROXINE SODIUM 25 MCG TABLET PO SCH (06:00)
[2020-01-28 07:28] LABS: BASOPHILS # (AUTO) 0.1 K/uL (0.0-8.0); BASOPHILS % (AUTO) 0.6 % (0.0-2.0); EOSINOPHILS # (AUTO) 0.2 K/uL (0.0-0.7); EOSINOPHILS % (AUTO) 2.5 % (0.0-7.0); HEMATOCRIT 34.8 % (31.2-41.9); HEMOGLOBIN 11.9 g/dL (10.9-14.3); LYMPHOCYTES # (AUTO) 1.9 K/uL (20.0-40.0); MEAN CORPUSCULAR HEMOGLOBIN 34.4 uug (24.7-32.8); MEAN CORPUSCULAR HGB CONC 34 g/dL (32.3-35.6); MEAN CORPUSCULAR VOLUME 100.7 fL (75.5-95.3); MONOCYTES # (AUTO) 0.6 K/uL (2.0-10.0); MONOCYTES % (AUTO) 6.5 % (0.0-11.0); NEUTROPHILS # (AUTO) 6.2 K/uL (1.8-8.9); NEUTROPHILS % (AUTO) 69.4 % (38.5-71.5); PLATELET COUNT (AUTO) 240 K/uL (179-408); RED BLOOD CELL COUNT(AUTO) 3.45 MIL/uL (3.63-4.92)
[2020-01-28 07:39] LABS: BILIRUBIN,TOTAL 0.2 mg/dL (0.2-1.0); CREATININE 1.1 mg/dL (0.6-1.3); MAGNESIUM 1.9 mg/dL (1.8-2.4); PHOSPHOROUS 3.1 mg/dL (2.5-4.9); POTASSIUM 4.2 mmol/L (3.5-5.1); TOTAL PROTEIN, SERUM 7.2 g/dL (6.4-8.2)
[2020-01-28 08:00] VITALS: BP 130/79
[2020-01-28] MEDS: GABAPENTIN 300 MG CAPSULE PO SCH ×4 (08:40→20:39)
[2020-01-28] MEDS: TOLTERODINE LA 2 MG CAP.SR.24H PO SCH (08:40)
[2020-01-28] MEDS: ZIPRASIDONE 20 MG CAPSULE PO SCH ×2 (08:40→20:40)
[2020-01-28] MEDS: OXCARBAZEPINE 150 MG TABLET PO SCH ×3 (08:40→16:38)
[2020-01-28] MEDS: LINAGLIPTIN 5 MG TABLET PO SCH (08:40)
[2020-01-28] MEDS: METFORMIN HCL 500 MG TABLET PO SCH ×2 (08:40→17:22)
[2020-01-28] MEDS: VENLAFAXINE XR 150 MG CAP.SR.24H PO SCH (08:41)
[2020-01-28] MEDS: INSULIN REGULAR, HUMAN 300 UNIT/3 ML VIAL SQ PRN ×4 (08:42→20:44)
[2020-01-28] MEDS: HYDROCORTISONE 1% OINT 28.35 GM TUBE TOP SCH ×2 (08:43→16:39)
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
[2020-01-28 15:12] LABS: *BILIRUBIN,URIN NEGATIVE (NEGATIVE); *BLOOD, URINE 1+ (NEGATIVE); *CLARITY,URINE CLEAR (CLEAR); *COLOR,URINE YELLOW (YELLOW); *KETONES,URINE NEGATIVE (NEGATIVE); *UROBILINOGEN,URINE 0.2 E.U./dl (NORMAL); LEUKOCYTE ESTERASE ,URINE NEGATIVE (NEGATIVE); NITRITE, URINE NEGATIVE (NEGATIVE); PH,URINE 5.5 (5.0-8.0); UGLUCOSE NEGATIVE (NEGATIVE)
[2020-01-28 15:20] LABS: *CREATININE,URINE 156.6 mg/dL (30-125); *URINE TOTAL PROTEIN RANDOM 21.1 mg/dL (<150/24HR)
[2020-01-28 16:15] LABS: BACTERIA,URINE NONE SEEN /HPF (NONE SEEN); SQUAMOUS EPITHELIAL CELL,UR FEW /HPF (NONE SEEN); WBC,URINE 0-3 /HPF (0-3)
[2020-01-28 16:16] VITALS: BP 131/80
[2020-01-28] MEDS: SIMVASTATIN 10 MG TABLET PO SCH (20:39)
[2020-01-28] MEDS: TOPIRAMATE 100 MG TABLET PO SCH (20:40)
[2020-01-28 21:18] VITALS: BP 169/78
[2020-01-28] MEDS: ACETAMINOPHEN 325 MG TABLET PO PRN (21:38)
[2020-01-28] MEDS: LORAZEPAM 0.5 MG TABLET PO PRN (21:38)
[2020-01-28] MEDS: ZOLPIDEM 5 MG TABLET PO PRN (22:49)
--- NOTE | 2020-01-29 03:24 | NUR ---
GPS/ Pt was noted sitting in TV room communicating with peers but noted with frequent mood swings, outburst and cry spells. Pt noted with poor insight and thought process. Wilber concerns with every little things even in TV. Reality oriented and frequently re-assure her for safety. Cooperative with routine medications and PRN as requested. Pt sleep at this time and will continue to monitor, anticipate needs.
[2020-01-29] MEDS: BLOOD SUGAR DIAGNOSTIC 1 EACH STRIP VI SCH ×2 (06:43→11:30)
[2020-01-29] MEDS: LEVOTHYROXINE SODIUM 25 MCG TABLET PO SCH (06:45)
--- NOTE | 2020-01-29 06:57 | NUR ---
Pt refused am med Synthroid. Will endorse to incoming nurse. Also received urine culture preliminary result of Gram Negative Rods. Pt will be d/c to SNF and result will be given and endorse to nurse.
[2020-01-29 07:30] VITALS: BP 135/52
--- NOTE | 2020-01-29 08:06 | NUR ---
Social Work Discharge Note: Patient will be discharged to [facility] [address] [place] [address] ([phone]) via ambulance transportation today at 2PM. Spoke with Elidia sales service coordinator at the facility who states they are ready to accept the patient today. Patient's mother Lori ([phone]) is aware and agreeable. Patient is alert and oriented x3-4, denies suicidal or homicidal ideation, and is aware and agreeable with discharge plans. Patient presents with normal mood and full range affect. The patient is unable to provide for self-care at this time, however, is willing to accept care at the facility. Patient will follow-up at the facility with Psychiatrist Dr. Mcdermott and Special Investigator Dr. Haney. Patients motherYanely ([phone]) is made aware and is agreeable with discharge plan.
[2020-01-29] MEDS: LINAGLIPTIN 5 MG TABLET PO SCH (08:21)
[2020-01-29 08:22] VITALS: BP 135/52
[2020-01-29] MEDS: OXCARBAZEPINE 150 MG TABLET PO SCH ×2 (08:22→12:55)
[2020-01-29] MEDS: METFORMIN HCL 500 MG TABLET PO SCH (08:22)
[2020-01-29] MEDS: GABAPENTIN 300 MG CAPSULE PO SCH ×2 (08:22→12:55)
[2020-01-29] MEDS: TOLTERODINE LA 2 MG CAP.SR.24H PO SCH (08:23)
[2020-01-29] MEDS: VENLAFAXINE XR 150 MG CAP.SR.24H PO SCH (08:23)
[2020-01-29] MEDS: ZIPRASIDONE 20 MG CAPSULE PO SCH (08:24)
[2020-01-29] MEDS: INSULIN REGULAR, HUMAN 300 UNIT/3 ML VIAL SQ PRN (08:28)
--- NOTE | 2020-01-29 08:41 | NUR ---
Social Work Family Contact: This administrative underwriter discussed discharge with patient's mother Sharla ([phone]) is aware and agreeable.
[2020-01-29] MEDS ORDERED: LISINOPRIL 10 MG TABLET PO SCH (09:00)
[2020-01-29] MEDS: HYDROCORTISONE 1% OINT 28.35 GM TUBE TOP SCH (09:25)
--- NOTE | 2020-01-29 14:30 | NUR ---
Called report to the facility, [facility]dugo report given regarding patient will be discharged to their facility. RN notified regarding medications to continue upon discharged 1430 Patient dischrged patient via ambulance, stable condition Denies SI/hI. No delusion . No a/v hallucination
[2020-01-30 14:20] LABS: A/G RATIO 1.1 (0.7-1.7); ALBUMIN 3.4 g/dL (2.9-4.4); ALPHA-1-GLOBULIN 0.2 g/dL (0.0-0.4); ALPHA-2-GLOBULIN 1.1 g/dL (0.4-1.0); BETA GLOBULIN 1.2 g/dL (0.7-1.3); GAMMA GLOBULIN 0.7 g/dL (0.4-1.8); GLOBULIN, TOTAL 3.2 g/dL (2.2-3.9); M-SPIKE Not Observed g/dL (Not Observed)
== END 2020-01-29 14:30 | DRG 885 ==
LOC: ER 21:41 → GPS 23:45
PROVIDERS: ADMIT Psychiatry & Neurology Psychiatry; ATTEND Registered Nurse
DX: F31.10 Bipolar disorder, current episode manic without psychotic features, unspecified (principal); N39.0 Urinary tract infection, site not specified; N17.9 Acute kidney failure, unspecified; F23 Brief psychotic disorder; E11.65 Type 2 diabetes mellitus with hyperglycemia; E86.0 Dehydration; G89.4 Chronic pain syndrome; Z90.49 Acquired absence of other specified parts of digestive tract; E03.9 Hypothyroidism, unspecified; R45.850 Homicidal ideations; I50.9 Heart failure, unspecified; I11.0 Hypertensive heart disease with heart failure; F29 Unspecified psychosis not due to a substance or known physiological condition; E66.9 Obesity, unspecified; Z68.29 Body mass index [BMI] 29.0-29.9, adult; Z90.710 Acquired absence of both cervix and uterus; Z98.1 Arthrodesis status; D72.829 Elevated white blood cell count, unspecified; Z79.84 Long term (current) use of oral hypoglycemic drugs; B96.20 Unspecified Escherichia coli [E. coli] as the cause of diseases classified elsewhere
CPT/HCPCS: 36415; 70030-TC; 80307; 80329; 83735; 83970; 84100; 84155; 84156; 84165; 84300; 84443; 85025; 87077; 87086; G0480; G0480-TC; J1815; J1885; J2060

== ENCOUNTER 2021-04-23 02:57 | Emergency (ER) | payer OTHER ==
[~2021-04-23] VITALS: Ht 165.1 cm; Wt 62.8 kg
[~2021-04-23 02:57] MED LIST: FESO8TAB PO; FURO-152 PO; HYDR-4354 PO; LISI20TA30 PO; SITA100T PO; [UNRECOGNIZED DRUG - REMARK]; [UNRECOGNIZED DRUG - REMARK]
--- NOTE | 2021-04-23 03:11 | NUR ---
pt brought in by ra for c/o abd states a 03/07. pt denies n/v denies chest pain or sob. [facility]. pt with steady gait no assist with ambuation. Blood sugar check 159 as pt states she is diabetic.
--- NOTE | 2021-04-23 03:19 | NUR ---
Dr. Lima at bedside for MSE.
[2021-04-23 04:03] LABS: BILIRUBIN,DIRECT 0.1 mg/dL (0.0-0.2); BILIRUBIN,TOTAL 0.3 mg/dL (0.2-1.0); CREATININE 0.9 mg/dL (0.6-1.3); HEMATOCRIT 30.6 % (31.2-41.9); MEAN CORPUSCULAR HEMOGLOBIN 33.4 uug (24.7-32.8); MEAN CORPUSCULAR VOLUME 99.1 fL (75.5-95.3); PLATELET COUNT (AUTO) 429 K/uL (179-408); POTASSIUM 3.6 mmol/L (3.5-5.1); TOTAL PROTEIN, SERUM 7.1 g/dL (6.4-8.2)
--- NOTE | 2021-04-23 04:05 | NUR ---
pt taken to cat scan.
--- NOTE | 2021-04-23 04:14 | NUR ---
pt has returned from cat scan. pt denies c/p sob. pt informs to me that she has a psych history
[2021-04-23 04:25] LABS: *BILIRUBIN,URIN 1+ (NEGATIVE); *COLOR,URINE YELLOW (YELLOW); *KETONES,URINE 3+ (NEGATIVE); *UROBILINOGEN,URINE 0.2 E.U./dl (NORMAL); LEUKOCYTE ESTERASE ,URINE 1+ (NEGATIVE); NITRITE, URINE NEGATIVE (NEGATIVE)
[2021-04-23 04:26] LABS: *BLOOD, URINE TRACE (NEGATIVE); *CLARITY,URINE HAZY (CLEAR); UGLUCOSE 2+ (NEGATIVE)
[2021-04-23 04:27] LABS: BACTERIA,URINE FEW /HPF (NONE SEEN); SQUAMOUS EPITHELIAL CELL,UR MODERATE /HPF (NONE SEEN)
[2021-04-23] MEDS ORDERED: IV NORMAL SALINE 1000 ML BAG IV ONE (04:45)
--- NOTE | 2021-04-23 05:24 | NUR ---
Called Giselle for Ct abd dictation.
[2021-04-23] MEDS ORDERED: CIPR-262 PO (05:48)
[2021-04-23] MEDS ORDERED: METR500T PO (05:48)
[2021-04-23] MEDS ORDERED: SENN-22 PO (05:48)
--- NOTE | 2021-04-23 06:09 | NUR ---
arranged transport with hanane spoke with Aleida, eta is 8am. transporting pt to : [address] [address] Spoke with Moshe at [phone] at location.
[2021-04-23] MEDS ORDERED: LORAZEPAM 2 MG/1 ML VIAL ONE (06:41)
[2021-04-23] MEDS ORDERED: ZIPRASIDONE MESYLATE 20 MG VIAL IM ONE ×2 (06:45→06:56)
[2021-04-23] MEDS ORDERED: LORAZEPAM 2 MG/1 ML VIAL IV ONE (06:45)
--- NOTE | 2021-04-23 07:13 | NUR ---
endorsed report to Chanell DELAROSA for dayshift.
--- NOTE | 2021-04-23 07:14 | NUR ---
1st contact with patient: alert, awake, oriented x4, respiration:easy, skin is warm and dry. [facility] Patient expressed wanting to go back as soonest as possible and patient knew that her ride is coming at about 8am. Listening ear provided. Comfort and safety measures maintained. Breakfast was offered.
--- NOTE | 2021-04-23 07:40 | NUR ---
IV removed. Catheter intact and site benign. Pressure and 4x4 gauze applied to site. No bleeding noted. Patient is for discharged to nursing assisted home in stable condition. Written and verbal after care instructions given to patient. Patient verbalized understanding and compliance of instructions. Stressed follow up with primary doctor and GI doctor or return to ER for worsening s/s. Patient is now waiting for her ambulance pick pulling machine tender and breakfast tray from dietary.
--- NOTE | 2021-04-23 07:49 | NUR ---
Patient talked to her mother 2x while waiting for her ambulance ride.
--- NOTE | 2021-04-23 08:16 | NUR ---
Patient left ER in stable condition, denies any pains. She was calm & cooperative. SBAR done to tester waste disposal leakage of [facility].
== END 2021-04-23 08:17 | disposition home or self-care (01) ==
LOC: ER 03:00
DX: R10.9 Unspecified abdominal pain (principal); R00.0 Tachycardia, unspecified; E11.65 Type 2 diabetes mellitus with hyperglycemia; Z79.84 Long term (current) use of oral hypoglycemic drugs; F31.9 Bipolar disorder, unspecified; Z79.899 Other long term (current) drug therapy; M51.37 Other intervertebral disc degeneration, lumbosacral region; Z98.1 Arthrodesis status
CPT/HCPCS: 36415; 71045; 74176; 80048; 80076; 81001; 83690; 84484; 85025; 87086; 93005; 96361; 96372; 96374; 99285; J2060; J3486; 70030-TC; J7030